=== PATIENT | male | born 1970 | race Native Hawaiian/Other Pacific Islander ===

== ENCOUNTER 2025-06-03 18:25 | Emergency (ER) | payer OTHER, SELFPAY ==
--- OUTSIDE RECORDS SUMMARY | 2021-06-13 09:01 | XMS_ITS | Continuity of Care Document ---
Author Organization [facility] Address [address] [address] [place] [address] Phone Care Team Providers Care Wrapper Opener Name Role Phone Unavailable Unavailable Unavailable Allergies, Adverse Reactions, Alerts Substance Reaction Status Criticality No Known Allergies Active No Inform ation Medications Medication Instructions Dosage Effective Dates (start - stop) Status Comments lisinopril 20 mg tablet take 1 tablet by oral route every day 20 MG - Active Procedures Procedure Date Colonoscopy Flex; W/remov Les- 22 Level Iv-surg Path Gross/micro Advance Directives Directive Yes / No Effective Date File Name No Information Encounters Encounter Description Practice Location Reason(s) For Visit Diagnoses Date Provider Providers Copied on Encounter [facility], [address] [address], [place], [place], [id number], [place] tel:[phone] [facility] No Information 2 No Information Referring Provider: David Sheldon MD S, [address] [facility] [address], [place], [address] . tel:[phone] [facility], [address] [address], [place], [id number], [place] tel:[phone] [facility] GI Symptoms or Concerns (chief complaint) Colorectal polypsDivertic ulosis of colon without diverticulitis Encounter for screening for malignant neoplasm of colonBenign neoplasm of ascending colon 2 Monalisa Hernandez. [address] [facility], [place], [place], [address], [place]. tel:[phone] Referring Provider: Linda Ortiz CNM, [address] [facility], [place], [address]. tel:[phone] [facility], [address] [address], [place], [place], [id number], [place] tel:[phone] [facility] [place] [facility] No Information 1 Al Martínez. [address] [facility], [facility] [address], [place], [place], [address], [place]. tel:[phone] Family History Family Member Type Diagnosis Age At Onset No Information Immunizations Vaccine Date Status Comments Afluria Qd administered Note: M [facility] bi-directional interface ; Source: Other Registry tetanus toxoid, reduced diphtheria toxoid, and acellular pertussis vaccine, adsorbed administered Note: [facility] bi-direct ional interface ; Source: Other Registry Payers Payer name Insurance type Covered republican ID Authorcrystal nagel(s) [facility] [id number] Social History Type Description Quantity Date Captured Comments Sex Male Smoking Status No Information Chief Complaint And Reason For Visit No Information Reason For Referral Reason For Referral No Information History Of Present Illness Encounter Date Complaint History Of Prese nt Illness GI Symptoms or Concerns Functional Status Date Functional Assessmen t No Information Instructions Date Instruction Additional Infor mation No Information Assessments Type Assessment Date No Information Patient Care Teams Name Effective Dates (start - stop) Status Members No Information
--- OUTSIDE RECORDS SUMMARY | 2021-06-13 09:01 | XMS_ITS | Continuity of Care Document ---
Author Organization [facility] Address [address] [address] [place] [address] Phone Care Team Providers Care Head Of Maintenance Name Role Phone Unavailable Unavailable Unavailable Allergies, [...] Diagnoses Date Provider Providers Copied on Encounter [facility], [address] [address], [place], [place], [id number], [place] tel:[phone] [facility] No Information 2 No Information Referring Provider: David Sheldon MD S, [address] [facility] [address], [place], [address] . tel:[phone] [facility], [address] [address], [place], [id number], [place] tel:[phone] [facility] GI Symptoms or Concerns (chief complaint) Colorectal polypsDivertic ulosis of colon without diverticulitis Encounter for screening for malignant neoplasm of colonBenign neoplasm of ascending colon 2 Monalisa Hernandez. [address] [facility], [place], [place], [address], [place]. tel:[phone] Referring Provider: Linda Ortiz CNM, [address] [facility], [place], [address]. tel:[phone] [facility], [address] [address], [place], [place], [address], [place] tel:[phone] [facility] No Information 1 Al Martínez. [address] [facility], [facility] [address], [place], [place], [address], [place]. tel:[phone] Family History Family Member Type Diagnosis Age At Onset No Information Immunizations Vaccine Date Status Comments Afluria Qd administered Note: M [facility]IC bi-directional interface ; Source: Other Registry tetanus toxoid, reduced diphtheria toxoid, and acellular pertussis vaccine, adsorbed administered Note: [facility]IC bi-direct ional interface ; Source: Other Registry Payers Payer name Insurance type Covered democrat ID Authorcrystal nagel(s) [facility] [id number] Social History Type Description Quantity Date Captured [...]
--- OUTSIDE RECORDS SUMMARY | 2025-06-03 18:27 | XMS_ITS | Clinical Summary ---
Author Organization [facility] Address [address] [place] [address] Care Team Providers Care Drywall Contractor Name Role Phone Bakari Broderick MD Primary Care Provider [phone] Source Comments You are receiving this document as you are listed as the primary care provider,follow-up provider, or the patient has been referred to you for consultation.This is in compliance with the Medicare and[facility] EHR Incentive Program,which states Providers who transition their patient to another setting of careor provider of care or refers their patient to another provider of care shouldprovide summary care record for each transition of care or referral. [facility] Allergies No known active allergies Medications MedicationSigDispense QuantityRefillsLast FilledStart DateEnd DateStatus lisinopril (ZESTRIL) 20 MG tablet Indications:Essential hypertension (HRC)Take 1 Tablet by mouth daily. 90 Tablet Active cholecalciferol (VITAMIN D3) 25 MCG (1000 UT) tablet Take 1,000 Units by mouth daily.Active Ascorbic Acid (VITAMIN C) 1000 MG tablet Take 1,000 mg by mouth daily.Active Active Problems ProblemNoted DateDiagnosed DateFollow-up examination following xqkgwuq2408/28/2011 Overview (01/30/2017): Arthroscopic loose body removal and chondroplasty, left knee HTN (hypertension)08/24/2011Osteochondritis dissecans of knee08/18/2011 Overview (01/30/2017): Knee OCD, left Resolved Problems ProblemNoted DateDiagnosed DateResolved HekbGSXAH01/11/760994/01/2025Loose body in knee Overview (01/30/2017): Loose body in knee, left Immunizations ImmunizationAdministration DatesNext DueInfluenza IIV4 (Quadrivalent) 0.5mL (69553)08/19/2019TDAP (BOOSTRIX)10/24/2010 Family History Medical HistoryRelationNameCommentsHeart SurgeryBirth FatherHigh Blood Pressure FatherAmblyopia/YbjdmcmdrtNklydl9mm cousinHeart DiseasePaternal GrandfatherAnesthesia ReactionNegative Family HistoryBlindnessNegative Family HistoryBroken BonesNegative Family HistoryCancerNegative Family HistoryCataract Negative Family HistoryClotting DisorderNegative Family HistoryDiabetesNegative Family HistoryGlaucomaNegative Family HistoryMacular DegenerationNegative Family HistoryOsteoporosisNegative Family HistoryRetinal DetachmentNegative Family HistoryRheumatologic DiseaseNegative Family HistoryStrokeNegative Family History Thyroid DisorderNegative Family HistoryRelationNameStatusCommentsBirth Father AliveBirth TqjurvMfwpqOkcxhv7pj cousinAliveDaughterAliveMaternal Grandfather DeceasedMaternal GrandmotherDeceasedPaternal GrandfatherDeceasedPaternal GrandmotherAliveSister 1AliveSister 2AliveSon 1AliveSon 2AliveSon 3Alive Social History Tobacco UseTypesPacks/DayYears UsedDateSmoking Tobacco: NeverSmokeless Tobacco: NeverAlcohol UseStandard Drinks/WeekCommentsYes0 (1 standard drink = 0.6 oz pure alcohol)2 beers monthlyPHQ-2AnswerDate RecordedPHQ-2 Btxba091Sex and Gender InformationValueDate RecordedSex Assigned at NnzkmIgwe53/10/2021 8:08 PM CSTLegal YxrBnkp42/10/2012 7:02 AM CDTGender RmeghkagWmic72/10/2021 8:08 PM SPINNING MACHINE TENDER Sexual OrientationChoose not to apnhlycc80/10/2021 8:08 PM CSTOccupationIndustry Job Start DateJob End DateSoftware DeveloperNot on fileNot on fileNot on file Last Filed Vital Signs Vital SignReadingTime TakenCommentsBlood Ljopeuhk767/8203 4:07 PM CDT Hxeoh322908/19/2019 4:07 PM UMVLyobyrvqrtw99.7 ??C (98.1 ??F)01/30/2017 11:10 AM CDTRespiratory Wrao5668 4:33 PM CDTOxygen Vgbqlqvshn93%04/01/2014 4:35 PM CDTInhaled Oxygen Concentration--Bovpuh77.8 kg (178 lb 3.2 oz)04/20/2021 2:16 PM QWYRlwswv403.3 cm (5' 6.65)04/20/2021 2:16 PM CSTBody Mass Index28.2 04/20/2021 2:16 PM SPINNING MACHINE TENDER Plan of Treatment Health MaintenanceDue DateLast DoneCommentsColon Cancer Screening Plan Due 1970Hep C Screening (Preventive Services)1970PSA Screening Baktxhnxek19/29/1969HepB Vaccine (1)1987Pneumococcal Vaccine 50+ Yrs (1 of 1 - PCV)2018Zoster/Shingles Vaccine (1 of 2)2018Adult Preventive Visit, 08/07/2018, 05/16/2017, Additional history exists DTaP/Tdap/Td Vaccine (2 - Tdap), 10/24/2010 (Completed) Kkjpxumisxw61, 11/19/2013, 08/28/2012COVID-19 Vaccine ( - season)2025Influenza Vaccine (#1)/04/2020RSV Vaccine (1 - 1-dose 75+ series)2043HIV Screening (Preventive Services)Completed 08/07/2018 (Completed)HepA VaccineAged OutNo longer eligible based on patient's age to complete this topicHib VaccineAged OutNo longer eligible based on patient's age to complete this topicIPV (Polio) VaccineAged OutNo longer eligible based on patient's age to complete this topicMCV4 VaccineAged OutNo longer eligible based on patient's age to complete this topicMeningococcal B VaccineAged OutNo longer eligible based on patient's age to complete this topic Procedures Procedure NamePriorityDate/TimeAssociated DiagnosisCommentsLIPID PANEL & DIRECT LDL (IF NEEDED)Temzsqm0808/07/2018 4:37 PM SPINNING MACHINE TENDER Well adult exam from Last 3 Months or Most Recently Relevant to Health Maintenance Results * Lipid Panel - LDLD If Trig High (08/07/2018 4:37 PM SPINNING MACHINE TENDER)ComponentValueRef RangeTest MethodAnalysis TimePerformed AtPathologist WioslvegaRfwkreclpmf8373 - 199 mg/dLPN JMRPQifgyppogjyhy6810 - 149 mg/dLPN SOFTHDL Pyzjtafpuhi96>39 mg/dLPN SOFTCholesterol/HDL Ratio Screen4.5PN SOFTLDL Laiwmbyifa91698 - 130 mg/dLPN SOFTNon HDL Chol, Fmyo3130 - 159 mg/dLPN SOFTHours Forooxm47.0PN SOFT Specimen (Source)Anatomical Location / LateralityCollection Method / Volume Collection TimeReceived Time08/07/2018 4:37 PM CST08/07/2018 6:28 PM SPINNING MACHINE TENDER Narrative PN SOFT - 08/07/2018 6:59 PM SPINNING MACHINE TENDER Performed at [facility], [address] [place] [address] CLIA number [id number] Authorizing ProviderResult TypeResult StatusBakari Broderick MDLAB_1Final ResultPerforming OrganizationAddressCity/State/ZIP CodePhone Number [address] [address] from Last 3 Months or Most Recently Relevant to Health Maintenance Insurance * Guarantor: Robson Ag EAccount TypeRelation to PatientDate of BirthPhone Billing AddressPersonal/KasrdlZvev16[birth year][address] [place] [address] [place] [phone] * Guarantor: Robson Ag EAccount TypeRelation to PatientDate of BirthPhone Billing AddressPersonal/DlrbfaCzqo16[birth year][address] [place] [phone] * Guarantor: Robson Ag EAccount TypeRelation to PatientDate of BirthPhone Billing AddressPersonal/GpesgxGujz[birth year][address] [place] [address] * Guarantor: Robson Ag EAccount TypeRelation to PatientDate of BirthPhone Billing AddressMVA/NFMBcqc56 [address] [place] [address] Care Teams Team MemberRelationshipSpecialtyStart DateEnd Bakari Broderick MD [address] [place] [address] [facility] - General10/20/13
[2025-06-03 18:36] VITALS: BP 185/97; PULSE 83; RESP 18; TEMP 36.6; O2SAT 96
--- NOTE | 2025-06-03 18:55 | ED.GENADULT ---
HPI - General Adult General Chief complaint: Laceration/Wound Stated complaint: L thumb lac Time Seen by Provider: 06/03/25 18:31 History of Present Illness HPI narrative: Patient is a 54-year-old gentleman who slice tip of his left thumb while carving tricky today. He sliced just medial to the nail. The wound is approximated. He was unable to get the bleeding stopped at home. He is otherwise feeling fine with no other major complaints. Related Data Home Medications ?Medication ?Instructions ?Recorded ?Confirmed No Known Home Medications 06/03/25 06/03/25 Allergies Allergy/AdvReac Type Severity Reaction Status Date / Time No Known Drug Allergies Allergy Verified 06/03/25 18:40 Review of Systems Status of ROS: Reports: 6 or more systems reviewed and unremarkable except as noted in History and below Exam Narrative: Exam Narrative: EXAM GENERAL: Patient appears comfortable and well. EYES: No scleral icterus. LYMPH: No supraclavicular or cervical lymphadenopathy. SKIN: Linear laceration medial to the thumb on the left hand well-approximated 1 cm in length. EXT: No dependent lower extremity pedal edema. PSYCH: Good eye contact, speech is not pressured. Const: Vital Signs, click to edit/add: Vital Signs - 24 hr 06/03/25 18:36 Temperature 98 F Pulse Rate [Right Pulse Oximeter] 83 Respiratory Rate 18 Blood Pressure [Ri ght Upper Arm] 185/97 H Pulse Oximetry 96 Oxygen Delivery Me thod Room Air Course Course ED Course: After explained his and benefits to clean the wound I did provide Dermabond closing the defect. Patient is instructed on wound care will follow-up with his primary physician as needed. Vital Signs Vital signs: Initial Vital Signs Temperature 98 F 06/03/25 18:36 Temperature Source Temporal Artery Scan 06/03/25 18:36 Pulse Rate 83 06/03/25 18:36 Pulse Rhythm Regular 06/03/25 18:36 Pulse Strength 3+ Normal 06/03/25 18:36 Respiratory Rate 18 06/03/25 18:36 Blood Pressure 185/97 H 06/03/25 18:36 Blood Pressure Mean 126 H 06/03/25 18:36 Blood Pressure Position Sitting 06/03/25 18:36 Pulse Oximetry 96 06/03/25 18:36 Oxygen Delivery Method Room Air 06/03/25 18:36 Vital Signs Temperature 98 F 06/03/25 18:36 Pulse Rate 83 06/03/25 18:36 Respiratory Rate 18 06/03/25 18:36 Blood Pressure 185/97 H 06/03/25 18:36 Pulse Oximetry 96 06/03/25 18:36 Oxygen Delivery Method Room Air 06/03/25 18:36 Temperature 98 F 06/03/25 18:36 Pulse Rate 83 06/03/25 18:36 Respiratory Rate 18 06/03/25 18:36 Blood Pressure 185/97 H 06/03/25 18:36 Pulse Oximetry 96 06/03/25 18:36 Oxygen Delivery Method Room Air 06/03/25 18:36 Discharge Plan Discharge Clinical Impression: Laceration Patient Disposition: Home, Self-Care Condition: Stable Instructions: Laceration (ED) Additional Instructions: Follow-up as needed Activity Level: No Restrictions Discharge Diet: Regular Prescriptions: No Action No Known Home Medications Stand Alone Forms: MyHealth Info Instructions
== END 2025-06-03 19:35 | disposition home or self-care (01) ==
LOC: ED 19:35
PROVIDERS: Emergency Provider Internal Medicine
DX: S61.112A Laceration without foreign body of left thumb with damage to nail, initial encounter (principal); W26.0XXA Contact with knife, initial encounter; Y93.G3 Activity, cooking and baking
CPT/HCPCS: 12001; 99282; 99283